=== PATIENT | male | born 1995 | race African-American/Black ===

== ENCOUNTER 2017-10-28 07:38 | Emergency (ER) | payer BC, OTHER ==
[~2017-10-28] VITALS: Ht 182.9 cm; Wt 93.3 kg
[~2017-10-28 07:38] MED LIST: EPP3/2 IM; PSEU120T2 PO; SERT1TAB71 PO
[2017-10-28 07:45] VITALS: TEMP 36.5; Ht 182.9 cm; Wt 93.3 kg
--- NOTE | 2017-10-28 08:24 | EMERGENCY ROOM VISIT NOTE ---
History Report prepared by Billy: Bella Oneill Under the Supervision of: Dr. Rosalia Alvarez M.D. First contact with patient: 08:02 Chief Complaint: SORETHROAT Stated Complaint: SORE THROAT, SWOLLEN, HURTS TO SWALLOW History of Present Illness The patient is a 22 year old male who presents to the Emergency Room with complaints of a persistent left sided sore throat that began three days ago. He currently rates his discomfort as a 7/10 in severity. The patient states that he has intermittently been diaphoretic and chilled. He reports left sided lymphadenopathy. The patient is unsure if he has had a fever. He states that he tried drinking tea, but denies having any relief of his symptoms. The patient denies any ear pain. Source of History: patient Onset: 3 days ago Position: throat Symptom Intensity: 7/10 Quality: other (sore) Timing: other (persistent) Associated Symptoms: + chills, + diaphoresis, + lymphadenopathy, No fevers Review of Systems See HPI for pertinent positives & negatives. A total of 6 systems reviewed and were otherwise negative. Past Medical & Surgical Medical Problems: (1) No active medical problems Family History Diabetes mellitus Social History Smoking Status: Current Every Day Smoker Alcohol Use: occasionally Drug Use: none Marital Status: single Housing Status: lives with family Occupation Status: [employer] student Current/Historical Medications Scheduled Amoxicillin (Amoxil), 500 MG PO TID Allergies Coded Allergies: Nut Tree (Verified Allergy, Unknown, THROAT SWELLS, 10/28/17) Physical Exam Vital Signs Date Time Temp Pulse Resp B/P (MAP) Pulse Ox O2 Delivery O2 Flow Rate FiO2 10/28/17 10:29 71 18 136/77 97 Room Air 10/28/17 09:33 62 16 103/54 97 Room Air 10/28/17 07:45 100 Room Air 10/28/17 07:45 36.5 80 18 143/92 100 Room Air Physical Exam Vital signs reviewed. General: Well-appearing male, in no significant distress. HEENT: No scleral icterus, PERRLA, neck supple. Large amount of mucous to the posterior oropharynx with mild erythema, no tonsillar swelling, no exudate noted. No meningeal signs, TMs clear bilaterally, no palpable lymphadenopathy. Cardiovascular: Regular rate and rhythm, no extra sounds. Pulmonary: Clear to auscultation bilaterally, normal work of breathing. Abdomen: Soft, nontender, nondistended, positive bowel sounds. Musculoskeletal: Atraumatic, no peripheral edema. Neurologic: Patient awake alert and oriented x 3, full strength in all 4 extremities. Cranial nerves 2 through 12 grossly intact. Skin: Warm, dry, no rash Medical Decision & Procedures Medications Administered Medications (Trade) Dose Ordered Sig/Radha Route Start Time Stop Time Status Last Admin Dose Admin Guaifenesin (Mucinex Contr Rel Tab) 1,200 mg NOW STAT PO 10/28/17 08:26 10/28/17 08:29 DC 10/28/17 08:50 1,200 MG Oxymetazoline HCl (Afrin 0.05% Nasal [place]) 2 sprays NOW ONCE POLA 10/28/17 08:30 10/28/17 08:31 DC 10/28/17 08:41 2 SPRAYS Ibuprofen (Motrin Tab) 600 mg NOW STAT PO 10/28/17 08:26 10/28/17 08:29 DC 10/28/17 08:41 600 MG ED Course 0817: Past medical records reviewed. The patient was evaluated in room A12A. A complete history and physical examination was performed. 0826: Ordered Ibuprofen 600 mg PO, Guaifenesin 1200 mg PO. 0830: Ordered Oxymetazoline HCl 2 sprays POLA. 0956: I reevaluated the patient and he is resting comfortably. I discussed the test results with him and I discussed the treatment plan. He verbalized complete understanding and agreement. He is ready to go home. Medical Decision Differential diagnosis: Etiologies such as viral syndrome, tonsillitis, streptococcal pharyngitis, mononucleosis, peritonsillar abscess, retropharyngeal abscess, otitis, pneumonia , influenza, as well as others were entertained. This patient was evaluated and appeared to be in no significant distress. Physical examination reveals post nasal drip and some mild pharyngeal edema. Rapid strep swab is negative. Patient was advised of the findings. He will follow-up with his primary care physician for reevaluation and return to the ER for worsening of symptoms or any medical concerns. Medication Reconcilliation Current Medication List: was personally reviewed by me Impression Primary Impression: Pharyngitis Additional Impression: Post-nasal drip Scribe Attestation The scribe's documentation has been prepared under my direction and personally reviewed by me in its entirety. I confirm that the note above accurately reflects all work, treatment, procedures, and medical decision making performed by me. Departure Information Dispostion Home / Self-Care Prescriptions Amoxicillin (AMOXIL) 500 Mg Cap 500 MG PO TID, #21 CAP Prov: Rosalia Alvarez M.D. 10/29/17 Referrals Bob Prescott M.D. (PCP) Forms HOME CARE DOCUMENTATION FORM, IMPORTANT VISIT INFORMATION Patient Instructions [facility] Additional Instructions Diagnosis: Pharyngitis, postnasal drip Afrin nasal spray 2 sprays in each nostril every 12 hours as needed for congestion. Mucinex 1200 mg twice daily as needed for mucus and drainage. Ibuprofen 600 mg every 6 hours as needed for pain with food. Drink plenty of clear fluids including water. Follow-up with your physician this week for reevaluation. Return to the ER for worsening of symptoms or any medical concerns. Problem Qualifiers
[2017-10-28] MEDS ORDERED: IBUPROFEN 600 MG TAB PO STA (08:26)
[2017-10-28] MEDS ORDERED: GUAIFENESIN 600 MG TABCR PO STA (08:26)
[2017-10-28] MEDS ORDERED: OXYMETAZOLINE HCL 0.05% NA SPR 15 ML BTL NAE ONE (08:30)
[2017-10-28 10:29] VITALS: BP 136/77; PULSE 71; O2SAT 97
[2017-10-29] MEDS ORDERED: AMOX500C3 PO (14:40)
--- NOTE | 2017-10-29 14:45 | EMERGENCY ROOM VISIT NOTE ---
ED Visit Note First contact with patient: 08:02 Patient's throat culture has returned positive for group A strep. A prescription for amoxicillin 500 mg 3 times a day 7 day was sent to his pharmacy. Patient was not able to be contacted by telephone and his mother was contacted. She was informed of the findings and the plan for the prescription to be completed. She has expressed an understanding.
== END 2017-10-28 10:30 | disposition home or self-care (01) ==
LOC: C.EDB 07:40 → C.EDA 10:30
DX: J02.9 Acute pharyngitis, unspecified (principal); R09.81 Nasal congestion; F17.200 Nicotine dependence, unspecified, uncomplicated; Z83.3 Family history of diabetes mellitus; Z91.018 Allergy to other foods